=== PATIENT | male | born 1950 | race African-American/Black ===

== ENCOUNTER → 2016-12-20 | Outpatient (CLI) | payer MEDICARE, BC ==
[2015-09-05 15:48] VITALS: BP 111/81
[~2016-12-20] MED LIST: ACET325T9 PO; ASPI-482 PO
--- NOTE | 2016-12-20 15:49 | RAD ---
Indication injury to the foot particularly the fifth digit. AP oblique and lateral imaging of the left foot were was obtained. Technical factors, particularly with the AP oblique images are not optimal. There is a nondisplaced fracture at the base of the proximal phalanx of the small toe. No additional abnormality is seen IMPRESSION: Traumatic fracture proximal phalanx small toe
== END | disposition home or self-care (01) ==
LOC: RAD 15:15
PROVIDERS: ATTEND Internal Medicine
DX: S92.902A Unspecified fracture of left foot, initial encounter for closed fracture (principal); X58.XXXA Exposure to other specified factors, initial encounter; Y93.89 Activity, other specified; Y92.89 Other specified places as the place of occurrence of the external cause; Y99.8 Other external cause status
CPT/HCPCS: 73630

== ENCOUNTER → 2016-12-27 | Day surgery (SDC) | payer MEDICARE, BC ==
[~2016-12-27] MED LIST changes: +ATOR10TA60 PO; +HYDROmorphone 2 MG/ML VIAL IV PRN; +IV RINGERS,LACTATED 1000ML 1,000 ML IV SCH; +LIDOCAINE 1% PF 2 ML VIAL. ID PRN; +MELO7.5T29 PO; +MORPHINE SULFATE 2 MG/ML DISP.SYRIN. IV PRN; +ONDANSETRON PF 4 MG/2 ML VIAL. IV PRN; +PROCHLORPERAZINE 10 MG/2 ML VIAL. IV PRN; +PROPOFOL 20 ML IV ONE; +TAMS0.4C2 PO; +fentaNYL PF VIAL 100 MCG/2 ML VIAL IV PRN
--- NOTE | 2016-12-27 10:12 | PDOC1 ---
HISTORY & PHYSICAL H&P David Nino 1950 12/20/2016 02:00 PM 03/13 adQ [facility] [address] [place] [address]. [phone] Patient: David Nino Date of : 1950 Date: 12/20/2016 2:00 PM Visit Type: Office Visit This 66 year old male presents for Positive Guac card and Constipation. History of Present Illness: 1. Positive Guaic card Patient had heme positive stool during his routine visit. Patient had colonoscopy last year. Had diverticulosis. Has been having some constipation and had taken fibers, laxatives and MiraLax without much benefit. 2. Constipation The patient describes it as difficulty passing, feeling of fullness, hard and scybalous. Pertinent negatives include abdominal pain, black tarry stools, bloating and weight loss. INTAKE COMMENTS: Intake Comments: Nurse Note: the pt is here today after having 1 positive Guaic card with PCP during a routine physical. The pt states that he has not seen any blood rectally or with BMs. The pt had a colonoscopy last year, he states that he does have issues with constipation and straining with BMs. PROBLEM LIST: Problem Description Onset Date Personal history of colonic polyps 09/29/2015 Slow transit constipation 09/29/2015 Degenerative disc disease, lumbar 09/15/2015 Impacted cerumen of left ear 09/15/2015 Benign prostatic hyperplasia with urinary obstruction and other lower urinary tract symptoms 10/13/2015 Pure hypercholesterolemia 10/21/2015 Spondylosis of lumbar region without myelopathy or radiculopathy 11/23/2015 Chest pain, unspecified type 09/15/2015 History of colon polyps 09/15/2015 Impotence of organic origin 05/15/2009 Hyperlipidemia 05/15/2009 Benign prostatic hyperplasia 05/15/2009 Palpitations 05/15/2009 Chest pain 05/15/2009 Elevated PSA 10/21/2015 PAST MEDICAL/SURGICAL HISTORY (Detailed) Disease/disorder Onset Date Management Date Comments hemorhoidectomy Colonic polyps 11/09/2010 colonoscopy with polypectomy 11/09/2010 Diverticulosis 11/09/2010 Hyperlipidemia Internal hemorrhoids 11/09/2010 DIAGNOSTICS HISTORY: Test Ordered Interpretation Result completed COLONOSCOPY AND BIOPSY 11/09/2010 Abnormal Imp: Polyps (bx). Diverticulosis. Grade 2 Internal hemorrhoids. BX:Tubular adenoma x 2. 11/09/2010 Colonoscopy 09/29/2015 abnormal Imp: Diverticulosis in the sigmoid colon. The exam was otherwise normal. 11/03/2015 Test Ordered Ordering Comments Modifier COLONOSCOPY AND BIOPSY 11/09/2010 Gastroenterology Colonoscopy 09/29/2015 Medications (Active): Started Medication Directions Instruction Stopped 09/15/2015 aspirin 81 mg tablet,delayed release take 1 tablet (81MG) by ORAL route every day 07/07/2017 12/05/2016 atorvastatin 10 mg tablet TAKE 1 TABLET BY ORAL ROUTE EVERY DAY 12/05/2016 meloxicam 7.5 mg tablet take 1 tablet by oral route every day with food prn do not fill naproxen 12/05/2016 tamsulosin 0.4 mg capsule take 1 capsule by oral route every day 1/ 2 hour following the same meal each day 09/15/2015 Tylenol 325 mg tablet take 1-2 tablets by oral route every 4 hours as needed Allergies: Ingredient Reaction Medication Name Comment NAPROXEN GI side effects NO KNOWN DRUG ALLERGIES REVIEW OF SYSTEMS System Neg/Pos Details Constitutional Negative Chills, fever, malaise and weight loss. ENMT Negative Sore throat. Eyes Negative Double vision. Respiratory Negative Dyspnea and wheezing. Cardio Negative Chest pain and irregular heartbeat/palpitations. GI Positive See HPI. GI Negative Abdominal pain, black tarry stools, bloating and see HPI. Negative Dysuria and hematuria. Endocrine Negative Cold intolerance and heat intolerance. Psych Negative Anxiety. Integumentary Negative Hives and rash. MS Negative Joint pain. Sony/Lymph Negative Easy bleeding and easy bruising. Allergic/Immuno Negative Food allergies. VITAL SIGNS Time BP mm/Hg Pulse /min Resp /min Temp F Ht ft Ht in Ht cm Wt lb Wt kg BMI kg/ m2 BSA m2 O2 Sat% 1:36 PM 83 97.9 0.0 69.50 176.53 200.00 90.718 29.11 97 Time Measured by 1:36 PM Lyndsey Zeng PHYSICAL EXAM: Exam Findings Details Constitutional Normal Well developed. Eyes Normal Conjunctiva - Right: Normal, Left: Normal. Sclera - Right: Normal, Left: Normal. Nasopharynx Normal Lips/teeth/gums - Normal. Neck Exam Normal Inspection - Normal. Thyroid gland - Normal. Respiratory Normal Inspection - Normal. Auscultation - Normal. Cardiovascular Normal Regular rate and rhythm. No murmurs, gallops, or rubs. Vascular Normal Pulses - Carotids: Normal, Femoral: Normal, Dorsalis pedis: Normal. Abdomen Normal Inspection - Normal. Anterior palpation - No guarding. No abdominal tenderness. No hepatic enlargement. No splenic enlargement. No hernia. No ascites. Skin Normal Inspection - Normal. Extremity Normal No edema. Psychiatric * Oriented to time, place, person and situation. Psychiatric Normal Appropriate mood and effect. Assessment/Plan # Detail Type Description 1. Assessment Gastrointestinal hemorrhage, unspecified gastrointestinal hemorrhage type (K92.2). Patient Plan schedule E[place] [facility] [place] Further diagnostic evaluations ordered today include(s) EGD to be performed today. He is to schedule a follow-up visit with Sonja Encarnacion MD upon completion of work-up 2. Assessment Slow transit constipation (K59.01). Patient Plan Amitiza 24 mcg bid. Samples given. If works well patient to call for prescription. Electronically signed by: Sonja Encarnacion MD 12/20/2016 01:53 PM Document generated by: Sonja Encarnacion 12/20/2016 01:53 PM Yaya Del Toro MD, Family Practice; Jp Falcon MD Internal Medicine; Sushma Sebastian MD, Internal Medicine; Karen Encarnacion MD Internal Medicine; Sonja Encarnacion MD, Gastroenterology; Shawn Ventura MD, Rheumatology, [facility] P[facility], Physical Medicine/Rehab Kimberly Chapa APRN ------ 12/27/16 Patient seen and examined. No change in H&P. SONJA ENCARNACION MD Dec 27, 2016 10:12
[2016-12-27 11:01] VITALS: BP 104/71
== END | disposition home or self-care (01) ==
LOC: ENDOS 09:41
PROVIDERS: ATTEND Internal Medicine Gastroenterology
DX: K21.0 Gastro-esophageal reflux disease with esophagitis (principal); K29.80 Duodenitis without bleeding; K44.9 Diaphragmatic hernia without obstruction or gangrene; E78.00 Pure hypercholesterolemia, unspecified; M19.91 Primary osteoarthritis, unspecified site; F17.200 Nicotine dependence, unspecified, uncomplicated; Z87.39 Personal history of other diseases of the musculoskeletal system and connective tissue; Z72.89 Other problems related to lifestyle
CPT/HCPCS: 43235; J2704

== ENCOUNTER → 2020-12-16 | Outpatient (CLI) | payer MEDICARE, BC ==
[2016-12-27 11:01] VITALS: BP 104/71
[~2020-12-16] MED LIST changes: -HYDROmorphone 2 MG/ML VIAL IV PRN; -IV RINGERS,LACTATED 1000ML 1,000 ML IV SCH; -LIDOCAINE 1% PF 2 ML VIAL. ID PRN; -MORPHINE SULFATE 2 MG/ML DISP.SYRIN. IV PRN; -ONDANSETRON PF 4 MG/2 ML VIAL. IV PRN; -PROCHLORPERAZINE 10 MG/2 ML VIAL. IV PRN; -PROPOFOL 20 ML IV ONE; -fentaNYL PF VIAL 100 MCG/2 ML VIAL IV PRN
--- NOTE | 2020-12-16 14:09 | KCIC ---
EXAM: Chest, 2 views. HISTORY: Pleuritic chest pain. COMPARISON: None. FINDINGS: 2 views of the chest are obtained. There is no infiltrate, pleural effusion or pneumothorax . There is a prominent cardiac silhouette. IMPRESSION: Prominent cardiac silhouette. No acute pulmonary finding. Electronically signed by: Tracey Alexandre MD (12/16/2020 2:07 PM) [id number]
== END ==
LOC: KCIC 13:03
PROVIDERS: ATTEND Internal Medicine
DX: R07.81 Pleurodynia (principal)
CPT/HCPCS: 71046